=== PATIENT | female | born 1945 | race Caucasian/White ===

== ENCOUNTER 2017-01-25 09:07 | Emergency (ER) | payer OTHER ==
[2017-01-25 09:32] VITALS: BMI 26.2
--- NOTE | 2017-01-25 11:22 | C.PDOC ---
History Of Present Illness Pt c/o atraumatic right foot pain. Time Seen by Provider: 01/25/17 09:52 Chief Complaint (Nursing): Lower Extremity Problem/Injury History Per: Patient Onset/Duration Of Symptoms: Days (about 1 week) Current Symptoms Are (Timing): Still Present Severity: Moderate Additional History Per: Prior Records - Ankle/Foot Alleviating Factor(s): OTC Pain Medication Past Medical History Reviewed: Historical Data, Nursing Documentation, Vital Signs Vital Signs: Last Vital Signs Temp 98.3 F 01/25/17 09:26 Pulse 78 01/25/17 09:26 Resp 16 01/25/17 09:26 BP 134/83 01/25/17 09:26 Pulse Ox 97 01/25/17 09:26 - Medical History PMH: HTN, Hypercholesterolemia Surgical History: Tonsillectomy Family History: States: Unknown Family Hx - Social History Hx Tobacco Use: No Hx Alcohol Use: No Hx Substance Use: No - Immunization History Hx Tetanus Toxoid Vaccination: No Review Of Systems Except As Marked, All Systems Reviewed And Found Negative. Constitutional: Negative for: Fever, Weakness Cardiovascular: Negative for: Chest Pain Respiratory: Negative for: Shortness of Breath Gastrointestinal: Negative for: Vomiting, Abdominal Pain Musculoskeletal: Positive for: Foot Pain (right). Negative for: Neck Pain, Back Pain Skin: Negative for: Rash Neurological: Negative for: Weakness, Numbness, Seizures, Altered Mental Status Physical Exam - Physical Exam Appears: Non-toxic, No Acute Distress Skin: Normal Color, Warm, Dry, No Rash Head: Atraumatic, Normacephalic Eye(s): bilateral: PERRL, EOMI Neck: Normal ROM, Supple Cardiovascular: Rhythm Regular Respiratory: Normal Breath Sounds, No Accessory Muscle Use Gastrointestinal/Abdominal: Soft, No Tenderness Back: No CVA Tenderness Extremity: Normal ROM, Tenderness (Plantar aspect of right foot), No Pedal Edema , No Calf Tenderness, Capillary Refill (wnl), No Deformity, No Swelling Extremity: Bilateral: Normal Color And Temperature Pulses: Right Dorsalis Pedis: Normal (Strong PT pulse) Neurological/Psych: Oriented x3, Normal Motor, Normal Sensation ED Course And Treatment O2 Sat by Pulse Oximetry: 97 Pulse Ox Interpretation: Normal - Other Rad Right foot x-rays X-Ray: Interpreted by Me, Viewed By Me Interpretation: No fx. Reassessment Condition: Improved Disposition Counseled Patient/Family Regarding: Studies Performed, Diagnosis, Need For Followup, Rx Given - Disposition Referrals: Sachin Huitron MD [Staff Provider] - [facility] [Outside] Disposition: HOME/ ROUTINE Disposition Time: 11:23 Condition: IMPROVED Additional Instructions: Follow up with your doctor this week. Follow up with a Ostomy Rn (Foot doctor) . Return to the ER if you develop redness, swelling, worsening of symptoms or if you have any other concerns. Prescriptions: Naproxen [Naprosyn Tab] 375 mg PO BID PRN #20 tab PRN Reason: Pain, Moderate (4-7) Instructions: Plantar Fasciitis (ED) Print Language: ALBANIAN - Clinical Impression Clinical Impression: Right foot pain
[2017-01-25 11:44] VITALS: BP 123/83; PULSE 69; RESP 18; TEMP 98.5; O2SAT 98
--- NOTE | 2017-01-25 15:20 | RAD ---
Right foot three views History: Pain. Comparison: None available. Findings: Mild hallux valgus deformity. No evidence for acute displaced fracture or dislocation. Plantar calcaneal spurring. Pes planus deformity. Impression: Mild hallux valgus deformity. No evidence for acute displaced fracture or dislocation. Plantar calcaneal spurring. Pes planus deformity. If pain persists, consider MRI.
== END 2017-01-25 11:44 | disposition home or self-care (01) ==
LOC: C.ER 09:07
DX: M79.671 Pain in right foot (principal)

== ENCOUNTER 2017-07-04 17:03 | Emergency (ER) | payer OTHER ==
[2017-07-04 17:04] VITALS: BMI 26.2
[2017-07-04 17:09] VITALS: BP 156/96; PULSE 78; RESP 18; TEMP 97.8; O2SAT 98
--- NOTE | 2017-07-04 17:47 | C.PDOC ---
History Of Present Illness 72 yr old female presents to the ER s/p slip and fall 4 days ago. Patient complains of pain to the tailbone area, top scalp pain and bilateral upper neck pain. Patient states she slipped on a wet floor, landing onto the lower back area. States the pain is made worse with movement and palpation. Denies LOC, vision changes, nausea, vomiting, weakness or numbness. SP SLIP AND FALL 4 DAYS AGO CO TAILBONE AREA PAIN, TOP SCALP PAIN AND B/L UPPER NECK PAIN. SLIPPED ON WET FLOOR ONTO LOWER BACK. AMBUL NO LOC NO NV. PAIN WORSE W PALPATION, MOVEMENT EXAM MILD DIST NONTOXIC HEENT MILD SCALP SWELL TOP W MIN LOCAL TEND; NECK B/L UPPER NECK SPASM W LOCAL TEND; NO CSPINE TEND; AROM WO DIFF NEURO INTACT BACK GEN TEND LUMBAR/COCCYX NO DEFORM SKIN INTACT - HPI Time Seen by Provider: 07/04/17 17:22 Chief Complaint (Nursing): Back Pain History Per: Patient History/Exam Limitations: no limitations Onset/Duration Of Symptoms: Days (4) Past Medical History Reviewed: Historical Data, Nursing Documentation, Vital Signs Vital Signs: Last Vital Signs Temp 97.8 F 07/04/17 17:04 Pulse 78 07/04/17 17:04 Resp 18 07/04/17 17:04 BP 156/96 H 07/04/17 17:04 Pulse Ox 98 07/04/17 17:55 - Medical History PMH: HTN, Hypercholesterolemia, Osteoporosis Surgical History: Tonsillectomy Family History: States: No Known Family Hx - Social History Hx Tobacco Use: No Hx Alcohol Use: No Hx Substance Use: No - Immunization History Hx Tetanus Toxoid Vaccination: No Review Of Systems Except As Marked, All Systems Reviewed And Found Negative. Eyes: Negative for: Vision Change Gastrointestinal: Negative for: Nausea, Vomiting Musculoskeletal: Positive for: Neck Pain (Bilateral upper neck pain), Other ((+ ) Tailbone area pain. Top scalp pain. ) Neurological: Negative for: Weakness, Numbness Physical Exam - Physical Exam Appears: Non-toxic, In Acute Distress (Mild) Skin: Warm, Dry, No Rash Head: Swelling (Mild scalp swelling top with minimal local tenderness. ) Neck: Normal ROM, Supple, Other ((+) Spasm with local tenderness. (-) No CSpine tenderness. ) Chest: Symmetrical, No Tenderness Cardiovascular: Rhythm Regular, No Murmur Respiratory: Normal Breath Sounds, No Rales, No Rhonchi, No Stridor, No Wheezing Back: Other ((+) General tenderness lumbar/coccyx. (-) No deformity.) Extremity: Normal ROM, No Swelling Neurological/Psych: Oriented x3, Normal Speech, Normal Motor, Normal Sensation Gait: Steady ED Course And Treatment O2 Sat by Pulse Oximetry: 98 (RA) Pulse Ox Interpretation: Normal - Other Rad X-Ray - Cervical Spine X-Ray: Interpreted by Me, Viewed By Me Interpretation: Negative X-Ray - Sacrum & Coccyx X-Ray: Interpreted by Me, Viewed By Me Interpretation: Negative. Medical Decision Making Medical Decision Making: PLAN: * X-Ray - Cervical Spine, Sacrum & Coccyx * Toradol IM Disposition Counseled Patient/Family Regarding: Studies Performed, Diagnosis, Need For Followup - Disposition Referrals: YOUR,PMD [Other] Disposition: HOME/ ROUTINE Disposition Time: 18:28 Condition: IMPROVED Instructions: Contusion in Adults (ED), Coccyx Injury (ED) Forms: [employer] ([place]an), Work Excuse Print Language: SAMOAN - Clinical Impression Clinical Impression: Coccygeal contusion, Minor head injury - Scribe Statement The provider has reviewed the documentation as recorded by the Scribe Callie Hauser Provider Attestation: All medical record entries made by the Scribe were at my direction and personally dictated by me. I have reviewed the chart and agree that the record accurately reflects my personal performance of the history, physical exam, medical decision making, and the department course for this patient. I have also personally directed, reviewed, and agree with the discharge instructions and disposition.
--- NOTE | 2017-07-05 10:12 | RAD ---
PROCEDURE: Cervical spine 07/04/2017 Multiple views of the cervical spine performed. Note that the study is somewhat limited due to obscuration of the odontoid by overlying occiput in the open-mouth projection HISTORY: Trauma. COMPARISON: None. FINDINGS: BONES: No evidence of acute compression fractures no retropulsed fragments. Minor chronic appearing anterior stature loss C3 segment felt to be either degenerative or developmental. Questionable fusion anomaly C2 segment. . DISC SPACES: Multilevel degenerative spondylosis. Changes which most notably affect the mid to lower cervical disc space levels include disc space narrowing, endplate eburnation and anterolateral as well as small posterior osteophyte formation. Mild hypertrophic uncovertebral facet joint changes are also present. SOFT TISSUES: Prevertebral soft tissues grossly unremarkable OTHER FINDINGS: None. IMPRESSION: Limited study due to obscuration of the odontoid within. . No acute spur fracture seen within limitation of the study. Minor chronic anterior stature loss C3 segment felt to be either developmental or degenerative Suspect the fusion anomaly C2 segment. Mild multilevel degenerative spondylosis. Consider followup CT scan or MRI if further evaluation is required
--- NOTE | 2017-07-05 10:33 | RAD ---
PROCEDURE: Radiographs of the Sacrum and Coccyx HISTORY: TRAUMA COMPARISON: Comparison made with CT scan abdomen and pelvis dated 10/19/2014 TECHNIQUE: Frontal and lateral views of the sacrum and coccyx. Note that the lower sacrum and coccyx are partially obscured by overlying bowel related artifact FINDINGS: BONES: No definitive evidence of acute displaced fracture nor dislocation involving visualized portions of the sacrum or coccyx so far as can be seen. . Additionally, there are several calcifications seen overlying at partially obscuring the right sacral alar SACROILIAC JOINTS: Patent and intact. OTHER FINDINGS: Several calcifications overlying the right SI joint within the IMPRESSION: Limited study demonstrating no definitive fracture. Follow-up CT scan could be performed further evaluation is required. The
== END 2017-07-04 18:40 | disposition home or self-care (01) ==
LOC: C.ER 17:03
DX: S09.90XA Unspecified injury of head, initial encounter (principal); S30.0XXA Contusion of lower back and pelvis, initial encounter; W01.0XXA Fall on same level from slipping, tripping and stumbling without subsequent striking against object, initial encounter; Y93.89 Activity, other specified; Y92.89 Other specified places as the place of occurrence of the external cause
CPT/HCPCS: 72040; 72220; 96372; 99283; J1885

== ENCOUNTER 2018-11-18 11:08 | Outpatient (CLI) | payer OTHER | END 2018-11-18 11:09 | disposition home or self-care (01) | LOC: C.MAMMO 11:08 | DX: Z12.31 Encounter for screening mammogram for malignant neoplasm of breast (principal) ==